=== PATIENT | female | born 1955 | race Caucasian/White ===

== ENCOUNTER 2023-08-13 08:06 | Outpatient (AMB) | payer MEDICARE, SELFPAY ==
--- NOTE | 2023-08-13 08:09 | MHC.OFFWIV ---
Intake Vital Signs 08/13/23 08:16 Height 5 ft Weight 118 lb BMI 23.0 BP 126/78 Blood Pressure Location Rt brachial Position Sitting Pulse 78 Pulse Source Pulse Oximeter Temp 98.2 F Temp Source Temporal Artery Scan Pulse Oximetry (%) 97 Intake Visit Reasons: [employer] Flu like symptoms (masked) Intake Note: pt is here for c/o ache body, winded, fatigued Patient Tobacco Use Status: Never used Tobacco Allergies clopidogrel [From Plavix] Allergy (Mild, Verified 08/13/23 08:17) bleeding sulfamethoxazole [From Bactrim] Allergy (Mild, Verified 08/13/23 08:17) Stomach Upset trimethoprim [From Bactrim] Allergy (Mild, Verified 08/13/23 08:17) Stomach Upset Medication List - Last Reconciled 08/13/23 by Rigo Pitts MD albuterol sulfate 90 mcg/actuation 2 puffs inhalation Q6H PRN atorvastatin 80 mg PO DAILY azithromycin take 500 mg today (day 1), then 250 mg for 4 days (days 2-5) PO bupropion HCl 100 mg PO QAM hydroxyzine HCl mg PO lorazepam 0.5 mg PO DAILY PRN montelukast 10 mg PO DAILY sertraline 50 mg PO DAILY tiotropium bromide 2.5 mcg/actuation (Spiriva Respimat) 2 puffs inhalation DAILY Do you need a note to return to daycare/school/sports/work: Yes HPI [employer] Flu like symptoms (masked) HPI Details Patient presents for a sick visit. Reporting symptoms of sinus congestion, sore throat and difficulty swallowing. Low-grade fever. No family member is sick. No recent travel. Patient reports symptoms of malaise and fatigue. PFSH Social History Patient Tobacco Use Status: Never used Tobacco Physical Exam Vital Signs: Last Vital Signs Temp 98.2 F 08/13/23 08:16 Pulse 78 08/13/23 08:16 BP 126/78 08/13/23 08:16 Pulse Ox 97 08/13/23 08:16 BMI result Body Mass Index 23.0 Const General: cooperative and healthy appearing Nutritional Appearance: well nourished Orientation/consciousness: patient oriented x3 Limitations: no limitations HEENT Head: Yes normal to inspection Eyes General: appearance normal, both eyes and all related structures Neck Neck: Yes normal visual inspection Chest Chest palpation & inspection: normal palpation of entire chest wall Resp Effort & Inspection: normal respiratory effort Neuro General: patient oriented x3 Assessment & Plan Assessment & Plan (1) Upper respiratory tract infection: Code(s): J06.9 - Acute upper respiratory infection, unspecified Plan: Antibiotics ordered. Increase fluid intake. Tylenol for aches and pains. If symptoms worsen, follow-up here for a recheck. COVID testing done. Will call with results. Orders: Orders SARS-CoV2/FLU/RSV Today R43.9 - Unspecified disturbances of smell and taste Medications: New azithromycin take 500 mg today (day 1), then 250 mg for 4 days (days 2-5) PO 6 tabs 0RF Coding Level of Care Code Est Pt Level 3 (83459) Diagnoses Upper respiratory tract infection J06.9
[2023-08-13 08:16] VITALS: BP 126/78; PULSE 78; TEMP 36.8; O2SAT 97; BMI 23.0
== END 2023-08-13 09:03 | disposition home or self-care (01) ==
PROVIDERS: PCP Internal Medicine; Visit Provider Internal Medicine
DX: J06.9 Acute upper respiratory infection, unspecified (principal)
CPT/HCPCS: 99213

== ENCOUNTER 2023-08-13 13:37 | Outpatient (REF) | payer MEDICARE, SELFPAY ==
[2023-08-13 15:54] LABS: Influenza A PCR NEGATIVE (Negative); Influenza B PCR NEGATIVE (Negative); Resp Syncy Virus RNA Qual PCR NEGATIVE (Negative); SARS COV2 PCR INHOUSE NEGATIVE (Negative)
== END 2023-08-13 13:38 | disposition home or self-care (01) ==
LOC: HO.LNP 13:37
PROVIDERS: Visit Provider Internal Medicine
DX: R43.9 Unspecified disturbances of smell and taste (principal); Z20.822 Contact with and (suspected) exposure to COVID-19
CPT/HCPCS: 0241U